=== PATIENT | male | born 1960 | race Caucasian/White ===

== ENCOUNTER 2020-04-07 18:30 | Emergency (ER) | payer OTHER ==
[2020-04-07 18:38] VITALS: BP 144/76; PULSE 88; TEMP 99.8; BMI 28.0
--- NOTE | 2020-04-07 19:14 | PDOC ---
History of Present Illness - General Chief Complaint: Respiratory Stated Complaint: NASAL CONGESTION & FEVER Time Seen by Provider: 04/07/20 19:12 Past History - Medical History Allergies/Adverse Reactions: Allergies Allergy/AdvReac Type Severity Reaction Status Date / Time No Known Allergies Allergy Verified 10/10/13 10:42 Home Medications: Ambulatory Orders Tacrolimus [Prograf] 1 tab PO DAILY 10/07/13 Anemia: No Asthma: No Cancer: No Cardiac Disorders: No CVA: No COPD: No CHF: No Dementia: No Diabetes: No GI Disorders: No Disorders: No HTN: No Hypercholesterolemia: No Liver Disease: Yes (HEP C) Seizures: No Thyroid Disease: No - Surgical History Abdominal Surgery: Yes (LIVER TRANSPLANT 2001) Appendectomy: No Cardiac Surgery: No Cholecystectomy: Yes Lung Surgery: No Neurologic Surgery: No Orthopedic Surgery: Yes (ANKLE) - Psycho-Social/Smoking History Smoking History: Current every day smoker Have you smoked in the past 12 months: No Number of Cigarettes Smoked Daily: 10 Information on smoking cessation initiated: Yes - Substance Abuse Hx (Audit-C & DAST Scrn) How often the patient has a drink containing alcohol: Never Score: In Men: 4 or > Positive; In Women: 3 or > Positive: 0 Screen Result (Pos requires Nsg. Audit-10AR): Negative In the last yr the pt used illegal drug/Rx for NonMed reason: No Score: Yes response is considered Positive: 0 Screen Result (Positive result requires Nsg. DAST-10): Negative *Physical Exam - Vital Signs Last Vital Signs Temp Pulse Resp BP Pulse Ox 99.8 F H 88 16 144/76 100 04/07/20 18:31 04/07/20 18:31 04/07/20 18:31 04/07/20 18:31 04/07/20 18:31 Discharge - Discharge Information Condition: Good - Follow up/Referral Referrals: Marty Abdullahi MD [Primary Care Provider] - - Patient Discharge Instructions - Post Discharge Activity
--- NOTE | 2020-04-07 21:00 | PDOC ---
Documentation entered by Dk Ibarra SCRIBE, acting as scribe for Estela Briceno MD. Estela Briceno MD: This documentation has been prepared by the suzanneibeFred Alexis, SCRIBE, under my direction and personally reviewed by me in its entirety. I confirm that the documentation accurately reflects all work, treatment, procedures, and medical decision making performed by me. History of Present Illness - General Chief Complaint: Respiratory Stated Complaint: NASAL CONGESTION & FEVER Time Seen by Provider: 04/07/20 19:12 History Source: Patient Exam Limitations: No Limitations - History of Present Illness Initial Comments: 04/07/20 19:41 The patient is a 60 year old male with a significant past medical history of Hep-C and liver transplant (2001) who presents to the emergency department, referred to ED by PCP for fever, for evaluation of nasal congestion that began this morning. The patient reports a fever (Temp 99 this afternoon, 100 this evening, temp 99.8 in the ED). The patient denies any sick contacts or travel until he went to the beach yesterday but maintained social distancing. He has been working from home and has not left his home since October. The patient denies chest/abdominal/back pain, cough, and shortness of breath. Denies nausea, vomiting, and/or any GI symptoms. Denies any symptoms. Denies any other symptoms including changes in smell/taste. Allergies: NKDA Social Hx: The patient reports currently smoking 10 cigarettes per day. Surgical Hx: liver transplant (due to Hep-C, [facility], 2001), ankle surgery PCP: Dr. Abdullahi Past History - Medical History Allergies/Adverse Reactions: Allergies Allergy/AdvReac Type Severity Reaction Status Date / Time No Known Allergies Allergy Verified 10/10/13 10:42 Home Medications: Ambulatory Orders Tacrolimus [Prograf] 1 tab PO DAILY 10/07/13 Anemia: No Asthma: No Cancer: No Cardiac Disorders: No CVA: No COPD: No CHF: No Dementia: No Diabetes: No GI Disorders: No Disorders: No HTN: No Hypercholesterolemia: No Liver Disease: Yes (HEP C) Seizures: No Thyroid Disease: No - Surgical History Abdominal Surgery: Yes (LIVER TRANSPLANT 2001) Appendectomy: No Cardiac Surgery: No Cholecystectomy: Yes Lung Surgery: No Neurologic Surgery: No Orthopedic Surgery: Yes (ANKLE) - Psycho-Social/Smoking History Smoking History: Current every day smoker Have you smoked in the past 12 months: No Number of Cigarettes Smoked Daily: 10 Information on smoking cessation initiated: Yes - Substance Abuse Hx (Audit-C & DAST Scrn) How often the patient has a drink containing alcohol: Never Score: In Men: 4 or > Positive; In Women: 3 or > Positive: 0 Screen Result (Pos requires Nsg. Audit-10AR): Negative In the last yr the pt used illegal drug/Rx for NonMed reason: No Score: Yes response is considered Positive: 0 Screen Result (Positive result requires Nsg. DAST-10): Negative Review of Systems - Review of Systems Able to Perform ROS?: Yes Comments:: 04/07/20 19:41 CONSTITUTIONAL: +fever Absent: no fatigue EYES: Absent: visual changes ENT: +nasal congestion Absent: ear pain, no sore throat CARDIOVASCULAR: Absent: chest pain, no palpitations RESPIRATORY: Absent: cough, no SOB GI: Absent: abdominal pain, no nausea, no vomiting, no constipation, no diarrhea GENITOURINARY: Absent: dysuria, no frequency, no hematuria MUSKULOSKELETAL: Absent: back pain, no arthralgia, no myalgia SKIN: Absent: rash NEURO: Absent: headache All Other Systems: Reviewed and Negative *Physical Exam - Vital Signs Last Vital Signs Temp Pulse Resp BP Pulse Ox 99.8 F H 88 16 144/76 100 04/07/20 18:31 04/07/20 18:31 04/07/20 18:31 04/07/20 18:31 04/07/20 18:31 - Physical Exam 04/07/20 19:41 GENERAL: The patient is awake, alert, and fully oriented, in no acute distress. HEAD: Normal with no signs of trauma. EYES: Pupils equal, round and reactive to light, extraocular movements intact, sclera anicteric, conjunctiva clear with no pallor. ENT: Ears normal, nares patent, oropharynx clear without exudates. Moist mucous membranes. NECK: Normal range of motion, supple without lymphadenopathy, JVD, or masses. LUNGS: Breath sounds equal, clear to auscultation bilaterally. No wheeze/crackles. HEART: Regular rate and rhythm, normal S1 and S2 without murmur or rub. ABDOMEN: Soft/nontender/nondistended. BS wnl. No guarding or rebound. No palpable masses. No hepatosplenomegaly. EXTREMITIES: Normal range of motion, no edema. No clubbing or cyanosis. No cords, erythema, or tenderness. NEUROLOGICAL: Cranial nerves II through XII grossly intact. Normal speech, normal gait. PSYCH: Normal mood, normal affect. SKIN: Warm, Dry, normal turgor, no rashes or lesions noted. Medical Decision Making - Medical Decision Making As noted above, this 60-year-old man with a history of liver transplant 18 years ago, currently taking tacrolimus daily, but otherwise healthy presents with 1 day history of mild nasal congestion and low-grade fever. The patient has been quarantined, working from home for the last 5 months; he denies any travel or exposure to anyone known to be positive for COVID-19 virus. Yesterday, he visited the beach but states that he maintained social distancing throughout. He was told by his PMD () to come to the ER if his temperature measured at home was greater than 100 F. After measuring 99 degrees earlier today, his temperature was 100F at home this evening and he reported to the ER. He denies any symptoms other than mild nasal congestion. Exam as noted is normal Because the patient has minimal symptoms without evidence of hypoxia, dyspnea or high fever and exam is normal (including clear lungs on auscultation), COVID-19 test will be performed but no other work-up started. Patient will be discharged with instructions that results of the COVID-19 test will likely be available within the next 1 to 2 days. He will be contacted regarding the results (conversely, he can also call here after 24 hours). He should return here immediately if he develops any significant cough, shortness of breath, persistent high fever, nausea/vomiting/diarrhea or chest/abdominal pain Discharge - Discharge Information Problems reviewed: Yes Clinical Impression/Diagnosis: Fever Qualifiers: Fever type: unspecified Qualified Code(s): R50.9 - Fever, unspecified Condition: Stable Disposition: HOME - Follow up/Referral Referrals: Marty Abdullahi MD [Primary Care Provider] - - Patient Discharge Instructions Patient Printed Discharge Instructions: [facility]-Coronavirus Instructions, [facility]- [facility] COVID-19 Isolation Protocol Additional Instructions: Rest; drink plenty of fluids Self-isolation as previously Call here in 24 hours regarding results of COVID-19 test Return immediately if you develop cough, shortness of breath, persistent high fever, vomiting/diarrhea, chest or abdominal pain Contact your doctor regarding today's ER visit and follow-up as arranged - Post Discharge Activity
== END 2020-04-07 19:40 | disposition home or self-care (01) ==
LOC: FER 18:30
DX: R50.9 Fever, unspecified (principal)
CPT/HCPCS: 99282-25; U0003